=== PATIENT | female | born 1945 | race Caucasian/White ===

== ENCOUNTER 2024-04-13 10:02 | Outpatient (CLI) | payer MEDICARE, BC ==
[~2024-04-13] VITALS: Ht 161.3 cm; Wt 96.2 kg
[2024-04-13] MEDS: albuterol 2.5 MG/3 ML nebule NEB ONE (10:34)
[2024-04-13 10:35] VITALS: PULSE 77; RESP 16; O2SAT 98
[2024-04-13 10:47] VITALS: PULSE 75; RESP 18
== END 2024-04-13 23:59 | disposition home or self-care (01) ==
LOC: RT 10:02
PROVIDERS: ATTEND Internal Medicine
DX: R06.00 Dyspnea, unspecified (principal)
CPT/HCPCS: 94060; 94760; Z7610

== ENCOUNTER 2024-05-17 08:55 | Day surgery (SDC) | payer MEDICARE, BC ==
[2024-05-16 11:44] LABS: BASOPHILS # (AUTO) 0.1 X10'3 (0-0.2); BASOPHILS % (AUTO) 0.7 % (0-1); EOSINOPHILS # (AUTO) 0.1 X10'3 (0-0.9); EOSINOPHILS % (AUTO) 0.9 % (0-6); HEMOGLOBIN 13.7 g/dl (12.0-16.0); LYMPHOCYTES # (AUTO) 1.7 X10'3 (1.1-4.8); LYMPHOCYTES % (AUTO) 19.1 % (21-51); MEAN CORPUSCULAR HGB CONC 33.5 g/dL (33.0-36.5); MEAN CORPUSCULAR VOLUME 92.5 FL (78-98); MEAN PLATELET VOLUME 7.9 FL (7.4-10.4); MONOCYTES # (AUTO) 0.7 X10'3 (0-0.9); MONOCYTES % (AUTO) 7.5 % (2-12); NEUTROPHILS # (AUTO) 6.4 X10'3 (1.8-7.7); NEUTROPHILS % (AUTO) 71.8 % (42-75); PLATELET COUNT 249 X10'3 (140-440); RED BLOOD COUNT 4.43 X10'6 (4.20-5.60); RED CELL DISTRIBUTION WIDTH 14.1 % (11.5-14.5); WHITE BLOOD COUNT 8.9 X10'3 (4.5-11.0)
[2024-05-16 11:51] LABS: ALBUMIN 4.1 G/DL (3.4-5.0); ANION GAP 7 (8-16); BLOOD UREA NITROGEN 35 MG/DL (7-18); BUN/CREATININE RATIO 24.5 (10.0-20.0); CALCIUM 10.1 MG/DL (8.5-10.1); CHLORIDE 99 MMOL/L (99-107); CREATININE 1.43 MG/DL (0.40-0.90); GLUCOSE 113 MG/DL (70-104); SODIUM 141 MMOL/L (135-145); TOTAL CARBON DIOXIDE 35.1 MMOL/L (24-32); eGFR 35 ML/MIN
[2024-05-16 11:54] LABS: APTT 25 SECONDS (22-32)
[2024-05-16 11:55] LABS: POTASSIUM 2.9 MMOL/L (3.5-5.1)
[2024-05-17] VITALS (10 sets, daily range): BP systolic 102–158; BP diastolic 53–70; PULSE 68–92; RESP 16; TEMP 98.4; O2SAT 93–96
[~2024-05-17] VITALS: Ht 162.6 cm; Wt 95.9 kg
[2024-05-17] MEDS ORDERED: ATOR20TA66 PO (09:23)
[2024-05-17] MEDS ORDERED: POTA-207 PO (09:23)
[2024-05-17] MEDS ORDERED: CITA20TA16 PO (09:23)
[2024-05-17] MEDS ORDERED: FURO40TA4 PO (09:23)
[2024-05-17] MEDS ORDERED: TRIA1CAP88 PO (09:23)
[2024-05-17] MEDS ORDERED: LOSA100T58 PO (09:23)
[2024-05-17] MEDS ORDERED: OMEP40CA21 PO (09:23)
[2024-05-17] MEDS ORDERED: ACET-2971 PO (09:23)
[2024-05-17] MEDS ORDERED: LIDOcaine 1% (10mg/ml) 2ml vial ONE (09:39)
[2024-05-17] MEDS ORDERED: fentaNYL/PF 50MCG/1 ML 2ML syringe ONE (09:39)
[2024-05-17] MEDS ORDERED: midazolam 1 mg/ML 2ml injection ONE (09:39)
[2024-05-17] MEDS ORDERED: iohexol 350MG/ML 100ml bottle IV ONE (09:40)
[2024-05-17] MEDS ORDERED: heparin 1,000unit/ml 10ml vial 10 ML ONE (09:40)
[2024-05-17] MEDS ORDERED: iohexol 350 MG/ML 50ML vial IV ONE (09:40)
[2024-05-17] MEDS: normal saline 1,000 ML IV SCH (10:09)
[2024-05-17] MEDS: sodium bicarbonate 1meq/ml syr 150 ML in dextrose 5%-water 1,000 ML IV SCH (10:09)
[2024-05-17] MEDS: LORazepam 0.5 MG tablet PO PRN (10:11)
[2024-05-17] MEDS: diphenhydrAMINE 25mg capsule PO PRN (10:11)
[2024-05-17] MEDS: potassium Cl 20 mEq SR tablet PO ONE ×2 (10:12→10:32)
[2024-05-17] MEDS ORDERED: nitroGLYCERIN 500mcg/5mL D5W 5 ML IV ONE (11:00)
[2024-05-17] MEDS ORDERED: verapamil 2.5 mg/ml inj IV ONE (11:25)
[2024-05-17] MEDS ORDERED: HYDROcodone/acetaminophen 5mg/325mg tablet PO PRN (12:50)
[2024-05-17] MEDS ORDERED: HYDROcodone/acetaminophen 10/325mg tab PO PRN (12:50)
[2024-05-17 14:26] LABS: ISTAT HGB MIX 11.9 g/dl (12.0-16.0); ISTAT Hct MIX 35 %PCV (35-45); ISTAT O2 SATURATION MIX VENOUS 66 % (60-80); ISTAT SOURCE BLNK
== END 2024-05-17 16:40 | disposition home or self-care (01) ==
LOC: SSTAY O 08:55
PROVIDERS: ATTEND Internal Medicine Cardiovascular Disease
DX: I35.0 Nonrheumatic aortic (valve) stenosis (principal); I25.10 Atherosclerotic heart disease of native coronary artery without angina pectoris; I10 Essential (primary) hypertension; E78.5 Hyperlipidemia, unspecified; G47.30 Sleep apnea, unspecified; E66.3 Overweight; K21.9 Gastro-esophageal reflux disease without esophagitis; F41.9 Anxiety disorder, unspecified; Z86.010 Personal history of colon polyps; Z90.49 Acquired absence of other specified parts of digestive tract; Z79.899 Other long term (current) drug therapy; Z90.710 Acquired absence of both cervix and uterus; Z68.36 Body mass index [BMI] 36.0-36.9, adult; Z88.0 Allergy status to penicillin; Z88.5 Allergy status to narcotic agent; Z82.49 Family history of ischemic heart disease and other diseases of the circulatory system; Z83.3 Family history of diabetes mellitus
CPT/HCPCS: 36415; 80048; 82803; 84132; 85014; 85025; 85610; 85730; 93005; 93460; 99152; 99153; A4615; A6258; A6402; C1725; C1751; C1894; J1644; J2001; J2250; J3010; J3490; J7030; J7070; Q0163; Q9967; Z7610